=== PATIENT | female | born 1975 | race Caucasian/White ===

== ENCOUNTER 2022-10-01 08:25 | Emergency (ER) | payer BC ==
[~2022-10-01] VITALS: Ht 162.6 cm; Wt 104.0 kg
[2022-10-01] MEDS ORDERED: ONDANSETRON HCL 4MG/2ML INJ IV STA (08:27)
[2022-10-01] MEDS ORDERED: SODIUM CHLORIDE 0.9% 1,000 ML IV ONE (08:30)
[2022-10-01 09:06] LABS: BASOPHILS % 0.5 % (0.0-2.0); EOSINOPHILS % 1.9 % (0.0-5.0); HEMATOCRIT. 32.9 % (36.0-48.0); HEMOGLOBIN. 10.5 g/dL (12.0-16.0); LYMPHOCYTES % 22.4 % (20.0-50.0); MEAN CORPUSCULAR HEMOGLOBIN 23.9 pg (28.0-32.0); MEAN CORPUSCULAR VOLUME 75.2 fL (81.0-99.0); MEAN PLATELET VOLUME 7.9 fl (7.4-10.4); MONOCYTES % 5.2 % (2.0-8.0); PLATELET 258 x1000/uL (130-400); RED BLOOD CELL COUNT 4.38 mill/uL (4.2-5.4); RED CELL DISTRIBUTION WIDTH 16.4 % (11.6-14.6)
[2022-10-01 09:26] LABS: CHLORIDE 108 mEq/L (98-107)
[2022-10-01] MEDS ORDERED: ACETAMINOPHEN 325MG TABLET PO ONE (10:45)
[2022-10-01] MEDS ORDERED: METOCLOPRAMIDE HCL 10MG/2ML VIAL IV ONE (10:45)
[2022-10-01] MEDS ORDERED: KETOROLAC 30MG/ML VIAL IV ONE (11:15)
[2022-10-01 12:09] VITALS: BP 133/52
[2022-10-01] MEDS ORDERED: TOPUD PO (12:34)
== END 2022-10-01 13:48 | disposition home or self-care (01) ==
LOC: ER 08:25 → EDBEDREQ 11:19 → CANBEDREQ 13:02 → ER 13:48
DX: R51.9 Headache, unspecified (principal); R42 Dizziness and giddiness; I10 Essential (primary) hypertension
CPT/HCPCS: 36415; 70450; 71045; 80053; 83880; 85025; 96361; 96374; 96375; 99285; J1885; J2405; J2765; J7030; Z7610